=== PATIENT | male | born 1980 | race Caucasian/White ===

== ENCOUNTER 2023-05-16 10:30 | Outpatient (OUT) | payer BC, SELFPAY ==
[2023-05-16 11:03] LABS: SARS-CoV-2 Ag NEGATIVE (NEGATIVE)
[2023-05-16 12:36] LABS: SARS-CoV-2 NAA NOT DETECTED (NOT DETECTE)
== END 2023-05-16 10:31 | disposition home or self-care (01) ==
PROVIDERS: PCP Family Medicine; Visit Provider Family Medicine
DX: Z20.822 Contact with and (suspected) exposure to COVID-19 (principal)
CPT/HCPCS: 87635; 87811